=== PATIENT | female | born 1975 | race Caucasian/White ===

== ENCOUNTER 2023-12-12 18:36 | Emergency (ER) | payer OTHER, SELFPAY ==
[2023-12-12 18:46] VITALS: BP 132/99
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
[2023-12-12] MEDS: TYLENOL 1000 MG PO (20:59)
== END 2023-12-12 21:03 | disposition home or self-care (01) ==
LOC: EMR 18:36
PROVIDERS: EMERGENCY PHYSICIAN Emergency Medicine; FAMILY PHYSICIAN Internal Medicine
DX: S80.02XA Contusion of left knee, initial encounter (principal); V89.2XXA Person injured in unspecified motor-vehicle accident, traffic, initial encounter; Y92.410 Unspecified street and highway as the place of occurrence of the external cause; M25.562 Pain in left knee
CPT/HCPCS: 99283; 73564

== ENCOUNTER → 2024-08-23 14:15 | Outpatient (REF) | payer OTHER, SELFPAY | LOC: WDC 14:15 | DX: R92.2 Inconclusive mammogram (principal) | CPT/HCPCS: 76641 ==